=== PATIENT | female | born 1960 | race Caucasian/White ===

== ENCOUNTER 2017-10-27 15:18 | Emergency (ER) | payer BC ==
[2017-10-27] MEDS: PERCOCET 5MG/325MG TAB PO (17:44)
== END 2017-10-27 17:46 | disposition home or self-care (01) ==
LOC: M ED 15:18
DX: S62.355A Nondisplaced fracture of shaft of fourth metacarpal bone, left hand, initial encounter for closed fracture (principal); W23.0XXA Caught, crushed, jammed, or pinched between moving objects, initial encounter; Y92.89 Other specified places as the place of occurrence of the external cause; Z88.2 Allergy status to sulfonamides
CPT/HCPCS: 73130